=== PATIENT | female | born 1945 | race Caucasian/White ===

== ENCOUNTER → 2023-08-08 11:49 | Outpatient (REF) | payer MEDICARE, OTHER, SELFPAY ==
[2023-08-08 14:56] LABS: HDL Cholesterol 71 mg/dl; LDL Cholesterol, Calculated 111 mg/dl; Total Cholesterol 222 mg/dl (50-199); Triglyceride 202 mg/dl (10-149); Very Low Density Lipoprotein 40 mg/dl (0-30)
== END ==
LOC: HWLAB 11:49
PROVIDERS: ATTENDING PHYSICIAN Internal Medicine Cardiovascular Disease; FAMILY PHYSICIAN Family Medicine
DX: E78.5 Hyperlipidemia, unspecified (principal)
CPT/HCPCS: 36415; 80061

== ENCOUNTER → 2023-09-23 10:05 | Outpatient (REF) | payer MEDICARE, OTHER, SELFPAY ==
[2023-09-23 12:14] LABS: Free T4 0.98 ng/dl (0.78-2.19)
[2023-09-23 12:30] LABS: TSH 0.14 uIU/ml (0.47-4.68)
== END ==
LOC: HWLAB 10:05
PROVIDERS: ATTENDING PHYSICIAN Internal Medicine Endocrinology, Diabetes & Metabolism; FAMILY PHYSICIAN Family Medicine
DX: E03.9 Hypothyroidism, unspecified (principal)
CPT/HCPCS: 36415; 84439; 84443

== ENCOUNTER → 2023-11-14 12:45 | Outpatient (REF) | payer MEDICARE, OTHER, SELFPAY ==
[2023-11-14 15:34] LABS: Free T4 0.79 ng/dl (0.78-2.19)
[2023-11-14 15:48] LABS: TSH 2.25 uIU/ml (0.47-4.68)
== END ==
LOC: HWLAB 12:45
PROVIDERS: ATTENDING PHYSICIAN Internal Medicine Endocrinology, Diabetes & Metabolism; FAMILY PHYSICIAN Family Medicine
DX: E03.9 Hypothyroidism, unspecified (principal)
CPT/HCPCS: 36415; 84439; 84443

== ENCOUNTER → 2024-01-15 10:06 | Outpatient (REF) | payer MEDICARE, OTHER, SELFPAY ==
[2024-01-15 13:58] LABS: ALT (SGPT) 23 U/L (0-35); AST (SGOT) 34 U/L (14-36); HDL Cholesterol 59 mg/dl; LDL Cholesterol, Calculated 50 mg/dl; Total Cholesterol 146 mg/dl (50-199); Triglyceride 186 mg/dl (10-149); Very Low Density Lipoprotein 37 mg/dl (0-30)
== END ==
LOC: HWLAB 10:06
PROVIDERS: ATTENDING PHYSICIAN Internal Medicine Cardiovascular Disease; FAMILY PHYSICIAN Family Medicine
DX: R79.89 Other specified abnormal findings of blood chemistry (principal); E78.5 Hyperlipidemia, unspecified
CPT/HCPCS: 36415; 80061; 84450; 84460

== ENCOUNTER → 2024-03-19 10:23 | Outpatient (REF) | payer MEDICARE, OTHER, SELFPAY ==
[2024-03-19 12:42] LABS: Free T4 0.82 ng/dl (0.78-2.19)
[2024-03-19 12:55] LABS: TSH 1.17 uIU/ml (0.47-4.68)
== END ==
LOC: HWLAB 10:23
PROVIDERS: ATTENDING PHYSICIAN Internal Medicine Endocrinology, Diabetes & Metabolism; FAMILY PHYSICIAN Family Medicine
DX: E03.9 Hypothyroidism, unspecified (principal)
CPT/HCPCS: 36415; 84439; 84443

== ENCOUNTER → 2025-02-10 11:54 | Outpatient (REF) | payer MEDICARE, OTHER, SELFPAY ==
[2025-02-10 15:49] LABS: ALT (SGPT) 26 U/L (0-35); AST (SGOT) 29 U/L (14-36); Albumin 4.6 g/dl (3.5-5.0); Alkaline Phosphatase 72 U/L (38-126); Blood Urea Nitrogen 27 mg/dl (7-17); Calcium 9.4 mg/dl (8.4-10.2); Carbon Dioxide 26 mmol/L (22-30); Chloride 109 mmol/L (98-107); Glucose 96 mg/dl (70-99); HDL Cholesterol 56 mg/dl; LDL Cholesterol, Calculated 48 mg/dl; Potassium 4.4 mmol/L (3.5-5.1); Sodium 142 mmol/L (135-145); Total Protein 7.3 g/dl (6.3-8.2); Very Low Density Lipoprotein 39 mg/dl (0-30); eGFR > 60.00
== END ==
LOC: HWLAB 11:54
PROVIDERS: ATTENDING PHYSICIAN Internal Medicine Cardiovascular Disease; FAMILY PHYSICIAN Family Medicine
DX: E78.5 Hyperlipidemia, unspecified (principal)
CPT/HCPCS: 36415; 80053; 80061

== ENCOUNTER → 2025-03-15 10:54 | Outpatient (REF) | payer MEDICARE, OTHER, SELFPAY | LOC: HWRCS 10:54 | PROVIDERS: ATTENDING PHYSICIAN Internal Medicine Cardiovascular Disease; FAMILY PHYSICIAN Family Medicine | DX: R01.1 Cardiac murmur, unspecified (principal); R93.1 Abnormal findings on diagnostic imaging of heart and coronary circulation | CPT/HCPCS: 93306 ==

== ENCOUNTER → 2025-04-27 11:00 | Outpatient (REF) | payer MEDICARE, OTHER, SELFPAY ==
[2025-04-27 16:33] LABS: TSH 1.49 uIU/ml (0.47-4.68)
== END ==
LOC: HWLAB 11:00
PROVIDERS: ATTENDING PHYSICIAN Family Medicine
DX: E03.9 Hypothyroidism, unspecified (principal)
CPT/HCPCS: 36415; 84439; 84443